=== PATIENT | female | born 1980 | race Caucasian/White ===

== ENCOUNTER 2017-06-17 19:13 | Emergency (ER) | payer OTHER ==
[2017-06-17 19:24] VITALS: BP 143/84; PULSE 77; RESP 18; TEMP 97.4; O2SAT 100
--- NOTE | 2017-06-17 19:35 | ED PDOC ---
HPI: General Adult Time Seen by Provider: 06/17/17 19:20 Chief Complaint (Nursing): Abnormal Skin Integrity Chief Complaint (Provider): Cold Sore History Per: Patient History/Exam Limitations: no limitations Onset/Duration Of Symptoms: Hrs Current Symptoms Are (Timing): Still Present Additional Complaint(s): Diamond Marcelo is a 37 year old female that presents to the ED with a chief complaint of a cold sore present on the right side of her bottom lip. Patient states that the cold sore only became present on her lip earlier today, and that when she speaks, she feels as though her lip "splits open." She reports that her lip is currently draining. Past Medical History Reviewed: Historical Data, Nursing Documentation, Vital Signs Vital Signs: Last Vital Signs Temp 97.4 F L 06/17/17 19:18 Pulse 77 06/17/17 19:18 Resp 18 06/17/17 19:18 BP 143/84 06/17/17 19:18 Pulse Ox 100 06/17/17 19:46 - Medical History PMH: No Chronic Diseases - Family History Family History: States: Unknown Family Hx - Home Medications Home Medications: Ambulatory Orders Medication Instructions Recorded Acyclovir 5% [Zovirax] 1 cre TP Q3 #1 tube 06/17/17 Acyclovir [Zovirax] 200 mg PO QID 10 Days 06/17/17 - Allergies Allergies/Adverse Reactions: Allergies Allergy/AdvReac Type Severity Reaction Status Date / Time No Known Allergies Allergy Verified 02/03/16 16:55 Review of Systems ENT: Positive for: Other (cold sore present on right side of bottom lip, is draining.) Physical Exam - Reviewed Nursing Documentation Reviewed: Yes Vital Signs Reviewed: Yes - Physical Exam Appears: Positive for: Non-toxic, No Acute Distress Head Exam: Positive for: ATRAUMATIC, NORMOCEPHALIC Skin: Positive for: Normal Color, Warm ENT: Positive for: Other (TTP right side of bottom lip. Edema right side of bottom lip. Bottom lip currently draining.). Negative for: Normal ENT Inspection (Vesicular eruption present on right side of bottom lip. ) Neurologic/Psych: Positive for: Alert, Oriented. Negative for: Motor/Sensory Deficits - ECG O2 Sat by Pulse Oximetry: 100 (RA) Pulse Ox Interpretation: Normal Medical Decision Making Medical Decision Making: Impression: Herpes simplex Plan: * Gave patient Rx for Zovirax and Zovirax cream. Spoke to patient about possibility of cold sore reoccurrence in the future, discussed contagious aspect due to current drainage. Patient is stable for discharge home. Scribe Attestation: Documented by Annika Nunn, acting as a scribe for Daksha Joy PA-C. Provider Scribe Attestation: All medical record entries made by the Scribe were at my direction and personally dictated by me. I have reviewed the chart and agree that the record accurately reflects my personal performance of the history, physical exam, medical decision making, and the department course for this patient. I have also personally directed, reviewed, and agree with the discharge instructions and disposition. Disposition - Clinical Impression Clinical Impression: Herpes simplex - Patient ED Disposition Is Patient to be Admitted: No - Disposition Disposition: Routine/Home Disposition Time: 19:45 Condition: STABLE Prescriptions: Acyclovir [Zovirax] 200 mg PO QID 10 Days Acyclovir 5% [Zovirax] 1 cre TP Q3 #1 tube Instructions: Oral Herpes Simplex Virus Infections (ED) Forms: [employer] (Japanese)
[2017-06-17] MEDS ORDERED: Acyclovir 5% OINT 15 APPLIC/15 GM EXT SCH (22:00)
== END 2017-06-17 20:12 | disposition home or self-care (01) ==
LOC: H.ER 19:13
DX: B00.9 Herpesviral infection, unspecified (principal)

== ENCOUNTER 2017-08-12 19:33 | Emergency (ER) | payer OTHER ==
[2017-08-12 20:07] VITALS: PULSE 72; RESP 18; TEMP 98.8; O2SAT 100
[2017-08-12 20:59] LABS: HEMATOCRIT 35.7 % (34.0-47.0); MEAN CELL VOLUME 93.4 fl (81.0-99.0); MEAN CORPUSCULAR HEMOGLOBIN 31.3 pg (27.0-31.0); MEAN CORPUSCULAR HGB CONC 33.5 g/dL (33.0-37.0); RED CELL DISTRIBUTION WIDTH 12.9 % (11.5-14.5); WHITE BLOOD COUNT 7.2 K/uL (4.8-10.8)
[2017-08-12 21:07] LABS: BLOOD UREA NITROGEN 8 mg/dl (7-17); CALCIUM 9.3 mg/dL (8.4-10.2); CARBON DIOXIDE 24 mmol/L (22-30); CHLORIDE 106 mmol/L (98-107); GFR AFRICAN-AMERICAN > 60; GLUCOSE,RANDOM 92 mg/dL (65-105); POTASSIUM 3.7 MMOL/L (3.6-5.0); SODIUM 143 mmol/l (132-148)
[2017-08-12 21:24] LABS: T4 9.77 ug/dl (5.5-11.0)
[2017-08-12 21:38] LABS: THYROID STIMULATING HORMONE 4.48 mIU/ML (0.46-4.68)
--- NOTE | 2017-08-12 21:47 | ED PDOC ---
HPI: General Adult Time Seen by Provider: 08/12/17 20:19 Chief Complaint (Nursing): Female Genitourinary Chief Complaint (Provider): hair loss History Per: Patient History/Exam Limitations: no limitations Onset/Duration Of Symptoms: Days (x1) Current Symptoms Are (Timing): Still Present Additional Complaint(s): Diamond Marcelo is a 37 year old female who presents to the emergency department for an evaluation after patient woke up this morning and felt a patch of hair missing from scalp associated with weight loss and difficulty urinating. Denied any further medical history. 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 PMD: Koko Seo MD Past Medical History Reviewed: Historical Data, Nursing Documentation, Vital Signs Vital Signs: Last Vital Signs Temp 98.8 F 08/12/17 20:02 Pulse 72 08/12/17 20:02 Resp 18 08/12/17 20:02 BP 180/95 H 08/12/17 20:02 Pulse Ox 100 08/12/17 21:55 - Medical History PMH: Chronic Kidney Disease - Surgical History Other surgeries: donated kidney - Family History Family History: States: Unknown Family Hx - Social History Current smoker - smoking cessation education provided: Yes Ex-Smoker (has not smoked in the last 12 months): No Alcohol: None Drugs: Denies - Home Medications Home Medications: Ambulatory Orders Medication Instructions Recorded Acyclovir 5% [Zovirax] 1 cre TP Q3 #1 tube 06/17/17 Acyclovir [Zovirax] 200 mg PO QID 10 Days capsule 06/17/17 - Allergies Allergies/Adverse Reactions: Allergies Allergy/AdvReac Type Severity Reaction Status Date / Time No Known Allergies Allergy Verified 02/03/16 16:55 Review of Systems ROS Statement: Except As Marked, All Systems Reviewed And Found Negative Constitutional: Positive for: Weight loss, Other (hair loss) Genitourinary Female: Positive for: Dysuria Physical Exam - Reviewed Nursing Documentation Reviewed: Yes Vital Signs Reviewed: Yes - Physical Exam Appears: Positive for: Well, Non-toxic, No Acute Distress Head Exam: Positive for: NORMOCEPHALIC. Negative for: NORMAL INSPECTION Skin: Positive for: Normal Color Eye Exam: Positive for: Normal appearance, EOMI, PERRL. Negative for: Nystagmus ENT: Positive for: Normal ENT Inspection Neck: Positive for: Normal, Painless ROM, Supple. Negative for: Decreased ROM Cardiovascular/Chest: Positive for: Regular Rate, Rhythm. Negative for: Chest Non Tender Respiratory: Positive for: Normal Breath Sounds, Accessory Muscle Use. Negative for: Decreased Breath Sounds, Respiratory Distress Gastrointestinal/Abdominal: Positive for: Normal Exam, Bowel Sounds, Soft. Negative for: Tenderness Extremity: Positive for: Normal ROM. Negative for: Tenderness, Pedal Edema, Deformity Neurologic/Psych: Positive for: Alert (x3), financial planner II-XII (intact), Oriented, Mood/ Affect (anxious/tearful), Other (4cm in diameter of alopecia on center of scalp) . Negative for: Motor/Sensory Deficits, Aphasia - Laboratory Results Result Diagrams: 08/12/17 20:26 08/12/17 20:52 - ECG O2 Sat by Pulse Oximetry: 100 (RA) Pulse Ox Interpretation: Normal Medical Decision Making Medical Decision Making: Initial Impression: Alopecia areata Initial Plan: * BMP * T4 * TSH * Urine * Urine dipstick * CBC 2230: Pt. given reassurance, will f/u as outpatient with derm and therapist. crisis offered but patient declined. return precautions given. Scribe Attestation: Documented by Renetta Abernathy, acting as a scribe for Marcos Freeman MD. Provider Scribe Attestation: All medical record entries made by the Scribe were at my direction and personally dictated by me. I have reviewed the chart and agree that the record accurately reflects my personal performance of the history, physical exam, medical decision making, and the department course for this patient. I have also personally directed, reviewed, and agree with the discharge instructions and disposition. Disposition - Clinical Impression Clinical Impression: Alopecia areata - Disposition Referrals: Bridgre Bourgeois MD [Staff Provider] - Disposition: Routine/Home Disposition Time: 22:30 Condition: STABLE Instructions: Chronic Alopecia (ED) Forms: [employer] (Malagasy)
[2017-08-12 22:59] VITALS: BP 162/83
== END 2017-08-12 22:59 | disposition home or self-care (01) ==
LOC: H.ER 19:33
DX: L63.9 Alopecia areata, unspecified (principal); N18.9 Chronic kidney disease, unspecified